=== PATIENT | female | born 1970 | race Caucasian/White ===

== ENCOUNTER 2016-06-24 07:30 | Outpatient (CLI) | payer MEDICAID | END 2016-06-24 07:31 | disposition EMS.NT | DX: Z03.89 Encounter for observation for other suspected diseases and conditions ruled out (principal); Y04.2XXA Assault by strike against or bumped into by another person, initial encounter ==

== ENCOUNTER 2017-03-09 03:14 | Emergency (ER) | payer MEDICAID ==
[2017-03-09] MEDS ORDERED: ONDANSETRON 4 MG/2 ML VIAL IVP STA (03:26)
[2017-03-09] MEDS ORDERED: SODIUM CHLORIDE 0.9% 1,000 ML IV ONE (03:26)
[2017-03-09] MEDS ORDERED: LOPERAMIDE 2 MG CAPSULE PO STA (03:30)
--- NOTE | 2017-03-09 03:31 | ED Physician Documentation ---
PD HPI NVD - Stated complaint Stated Complaint: DIARRHEA - Chief complaint Chief Complaint: Abd Pain - History obtained from History obtained from: Patient, Friend - History of Present Illness Timing - onset: How many hours ago (4) Timing - details: Abrupt onset, Still present Associated symptoms: Abdominal pain. No: Fever Contributing factors: No: Sick contact, Bad food, Recent antibiotics Similar symptoms before: Work up / diagnostics, Treatment Recently seen: Not recently seen - Additonal information Additional information: Patient is a 46 year old female with no signficant past medical history who is presenting to the emergency department for four hours of vomiting and diarrhea. According to patient and friend patient has had projectile vomiting and deficated all over the hotel room. patient had symptoms like this once before a few year prior. Review of Systems Constitutional: reports: Fever. denies: Chills, Myalgias Eyes: reports: Reviewed and negative Ears: reports: Reviewed and negative Nose: denies: Congestion Throat: reports: Reviewed and negative Cardiac: reports: Reviewed and negative Respiratory: denies: Dyspnea, Cough GI: reports: Abdominal Pain, Nausea, Vomiting, Diarrhea : reports: Reviewed and negative Skin: denies: Rash, Lesions Neurologic: reports: Generalized weakness. 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 - Present Medications Home Medications: Ambulatory Orders Medication Instructions Recorded Confirmed Loperamide HCl [Anti-Diarrheal] 2 mg PO Q8HR #14 tablet 03/09/17 Ondansetron Odt [Zofran] 4 mg TL Q6H PRN #20 tablet 03/09/17 - Allergies Allergies/Adverse Reactions: Allergies Allergy/AdvReac Type Severity Reaction Status Date / Time No Known Drug Allergies Allergy Verified 03/09/17 03:20 - Social History Does the pt smoke?: No Smoking Status: Never smoker Does the pt drink ETOH?: No Does the pt have substance abuse?: No - Immunizations Immunizations are current?: Yes - POLST Patient has POLST: No PD ED PE NORMAL - HEENT HEENT: Atraumatic - Neck Neck: Supple, no meningeal sign - Cardiac Cardiac: RRR, No murmur - Respiratory Respiratory: No respiratory distress - Abdomen Abdomen: Soft, Non distended - Derm Derm: Normal color, Warm and dry - Extremities Extremities: No deformity, Normal ROM s pain, No calf tenderness / cord - Neuro Neuro: Alert and oriented X 3, No motor deficit, No sensory deficit, Normal speech Eye Opening: To Voice Motor: Obeys Commands Verbal: Oriented GCS Score: 14 PD ED PE EXPANDED - General General: Disheveled, poorly kept - HEENT HEENT: Atraumatic, Dry mucous membranes. No: Head injury - Abdomen Abdomen: Tender to palpation, Generalized/diffuse. No: Rebound, Guarding Results - Vitals Vitals: Vital Signs - 24 hr 03/09/17 03:17 Temperature 36.5 C Heart Rate 93 Respiratory 16 Rate Blood Pressure 106/70 O2 Saturation 95 Oxygen O2 Source Room air - Labs Labs: Laboratory Tests 03/09/17 03/09/17 03/09/17 03:35 03:35 03:49 WBC 13.6 H RBC 4.71 Hgb 11.6 L Hct 35.7 L MCV 75.7 L MCH 24.6 L MCHC 32.5 RDW 15.3 H Plt Count 345 MPV 8.4 Neut # 11.3 H Lymph # 1.2 L [place] # 0.8 Eos # 0.2 Baso # 0.0 Absolute Nucleated RBC 0.00 Nucleated RBC % 0.0 Sodium 135 Potassium 3.6 Chloride 104 Carbon Dioxide 24 Anion Gap 7.0 BUN 11 Creatinine 0.6 Estimated GFR (MDRD) 108 Glucose 127 H Calcium 8.4 L Total Bilirubin 0.3 AST 32 ALT 43 Alkaline Phosphatase 132 H Total Protein 7.5 Albumin 3.5 Globulin 4.0 Albumin/Globulin Ratio 0.9 L Lipase 37 Ethyl Alcohol < 5.0 Influenza A (Rapid) Negative Influenza B (Rapid) Negative Influenza Types A,B Ag - PD MEDICAL DECISION MAKING - ED course Complexity details: reviewed old records, reviewed results, re-evaluated patient , considered differential, d/w patient ED course: Patient was seen and examined at bedside. IV access was gained and labs were drawn. patient was treated with iv fluids, zofran and loperamide. When patient 's labs came back there were no major abnormalities. patient had no episodes of emesis or diarrhea while in the emergency department. patient required no further inpatient work up and was stable for discharge with outpatient follow up. Departure - Departure Disposition: 01 Home, Self Care Clinical Impression: Gastroenteritis Condition: Good Instructions: ED Gastroenteritis Non Infec Follow-Up: Gravatt,Hector H, MD [Primary Care Provider] - Within 3 Days Prescriptions: Loperamide HCl [Anti-Diarrheal] 2 mg PO Q8HR #14 tablet Ondansetron Odt [Zofran] 4 mg TL Q6H PRN #20 tablet PRN Reason: Nausea / Vomiting Comments: Your diagnostics today were within normal limits. It is difficult to say exactly what caused your symptoms but they should improve over the next couple of days. You should take zofran for nausea and loperamide for the diarrhea. You should try to stay well hydrated with gatorade and electrolyte solutions. You should follow up with your doctor if your symptoms persist. You may return to the emergency department at any time for new, worsening or uncontrollable symptoms.
[2017-03-09 03:40] LABS: BASOPHILS % (AUTO) 0.4 %; EOSINOPHILS # (AUTO) 0.2 10^3/uL (0.0-0.7); EOSINOPHILS % (AUTO) 1.5 %; HGB - HEMOGLOBIN 11.6 g/dL (12.0-16.0); LYMPHOCYTES # (AUTO) 1.2 10^3/uL (1.5-3.5); MEAN CORPUSCULAR HEMOGLOBIN 24.6 pg (27.0-31.0); MEAN CORPUSCULAR HGB CONC 32.5 g/dL (32.0-36.0); MEAN CORPUSCULAR VOLUME 75.7 fL (81.0-99.0); MEAN PLATELET VOLUME 8.4 fL (7.9-10.8); MONOCYTES # (AUTO) 0.8 10^3/uL (0.0-1.0); MONOCYTES % (AUTO) 6.2 %; NEUTROPHILS # (AUTO) 11.3 10^3/uL (1.5-6.6); NEUTROPHILS % (AUTO) 82.9 %; PLT - PLATELET COUNT 345 10^3/uL (130-450); RED BLOOD COUNT 4.71 10^6/uL (4.20-5.40); RED CELL DISTRIBUTION WIDTH 15.3 % (12.0-15.0); WHITE BLOOD COUNT 13.6 x10^3/uL (4.8-10.8)
[2017-03-09 03:54] LABS: ALBUMIN 3.5 g/dL (3.2-5.5); ALBUMIN/GLOBULIN RATIO 0.9 (1.0-2.2); ALKALINE PHOSPHATASE 132 IU/L (42-121); ALT ALANINE AMINOTRANSFERASE 43 IU/L (10-60); AST ASPARTATE AMINOTRANSFERASE 32 IU/L (10-42); BILIRUBIN,TOTAL 0.3 mg/dL (0.2-1.0); BUN - BLOOD UREA NITROGEN 11 mg/dL (6-20); CALCIUM 8.4 mg/dL (8.5-10.3); CARBON DIOXIDE - CO2 24 mmol/L (21-32); CHLORIDE 104 mmol/L (101-111); CREATININE 0.6 mg/dL (0.4-1.0); GFR - MDRD 108 (>89); GLUCOSE 127 mg/dL (70-100); LIPASE 37 U/L (22-51); SODIUM 135 mmol/L (135-145); TOTAL PROTEIN 7.5 g/dL (6.7-8.2)
[2017-03-09 05:10] VITALS: BP 118/70
== END 2017-03-09 05:30 | disposition home or self-care (01) ==
LOC: ED 03:14
DX: K52.9 Noninfective gastroenteritis and colitis, unspecified (principal)
CPT/HCPCS: 36415; 80053; 80320; 83690; 85025; 87275; 87276; 96361; 96374; 99283; A9270

== ENCOUNTER 2017-04-08 23:36 | Emergency (ER) | payer MEDICAID ==
[2017-04-08 23:46] VITALS: BP 126/86
[2017-04-08] MEDS ORDERED: ACETAMINOPHEN 500 MG TABLET PO STA (23:46)
[2017-04-08] MEDS ORDERED: IBUPROFEN 600 MG TABLET PO STA (23:46)
--- NOTE | 2017-04-08 23:56 | ED Physician Documentation ---
PD HPI HEENT - Stated complaint Stated Complaint: TOOTHACHE - Chief complaint Chief Complaint: Heent - History obtained from History obtained from: Patient - History of Present Illness Timing - onset: Yesterday Timing - details: Gradual onset, Still present Location: Tooth Improves: Nothing Associated symptoms: No: Fever, Congestion Similar symptoms before: No diagnosis Recently seen: Not recently seen - Additional information Additional information: Patient is a 46 year old female with no significant past medical history who is presenting to the emergency department for tooth pain. Patient has poor dentition and states that for the last couple of days she has had worsening pain in the left upper molars. 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 - Present Medications Home Medications: Ambulatory Orders Medication Instructions Recorded Confirmed Loperamide HCl [Anti-Diarrheal] 2 mg PO Q8HR #14 tablet 03/09/17 Ondansetron Odt [Zofran] 4 mg TL Q6H PRN #20 tablet 03/09/17 Chlorhexidine Gluconate 15 ml MM Q6HR #1 mouthwash 04/08/17 - Allergies Allergies/Adverse Reactions: Allergies Allergy/AdvReac Type Severity Reaction Status Date / Time No Known Drug Allergies Allergy Verified 04/08/17 23:46 - Social History Does the pt smoke?: No Smoking Status: Never smoker Does the pt drink ETOH?: No Does the pt have substance abuse?: Yes Substance Use and Type: Marijuana - Immunizations Immunizations are current?: Yes - POLST Patient has POLST: No PD ED PE NORMAL - Vitals Vital signs reviewed: Yes - General General: Alert and oriented X 3, No acute distress - HEENT HEENT: Atraumatic, PERRL, Moist mucous membranes, Pharynx benign - Neck Neck: Supple, no meningeal sign - Cardiac Cardiac: RRR - Respiratory Respiratory: No respiratory distress - Abdomen Abdomen: Soft - Derm Derm: Normal color, Warm and dry - Extremities Extremities: No deformity - Neuro Neuro: Alert and oriented X 3, No motor deficit, Normal speech - Psych Psych: Normal mood PD ED PE EXPANDED - HEENT HEENT: Dental decay, Dental TTP, Other (multiple cracked teeth). No: Dental abscess Results - Vitals Vitals: Vital Signs - 24 hr 04/08/17 23:44 Temperature 37.0 C Heart Rate 101 H Respiratory 18 Rate Blood Pressure 126/86 H O2 Saturation 100 Oxygen O2 Source Room air PD MEDICAL DECISION MAKING - ED course Complexity details: reviewed old records, reviewed results, re-evaluated patient , considered differential, d/w patient ED course: Patient was seen and examined at bedside. Patient had no current abscess or fluid collection but she did have multiple caries and cracked teeth. Patient was treated with motrin, tylenol and topical lidocaine. chlorhexidine mouth wash prescription was written and patient was stable for discharge with outpatient follow up. Departure - Departure Disposition: 01 Home, Self Care Clinical Impression: Pain due to dental caries, Toothache Condition: Good Instructions: ED Tooth Pain Follow-Up: Hector Roche MD [Primary Care Provider] - Prescriptions: Chlorhexidine Gluconate 15 ml MM Q6HR #1 mouthwash Comments: There is no acute abscess of fluid infection. You will be started on an oral antibiotic rinse. You can take motrin and tylenol as needed for pain. Ultimately you will need to follow up with your dentist to get your teeth pulled. You should return to the emergency department for abscess fevers or chills.
== END 2017-04-09 00:04 | disposition home or self-care (01) ==
LOC: ED 23:36
DX: K02.9 Dental caries, unspecified (principal); K08.89 Other specified disorders of teeth and supporting structures
CPT/HCPCS: 99283; A9270

== ENCOUNTER 2019-02-03 05:57 | Outpatient (CLI) | payer MEDICAID | END 2019-02-03 05:58 | disposition critical access hospital (66) | LOC: EMS 05:57 | PROVIDERS: ATTEND Surgery | DX: R11.2 Nausea with vomiting, unspecified (principal); R19.7 Diarrhea, unspecified | CPT/HCPCS: A0425; A0429 ==

== ENCOUNTER 2019-02-03 06:23 | Emergency (ER) | payer MEDICAID ==
[2019-02-03] MEDS ORDERED: ONDANSETRON 4 MG/2 ML VIAL IVP STA (07:17)
[2019-02-03] MEDS ORDERED: SODIUM CHLORIDE 0.9% 1,000 ML IV ONE (07:17)
[2019-02-03 07:23] LABS: BASOPHILS % (AUTO) 0.2 %; EOSINOPHILS # (AUTO) 0.3 10^3/uL (0.0-0.7); HGB - HEMOGLOBIN 11.1 g/dL (12.0-16.0); LYMPHOCYTES # (AUTO) 0.9 10^3/uL (1.5-3.5); LYMPHOCYTES % (AUTO) 7.5 %; MEAN CORPUSCULAR HEMOGLOBIN 20.7 pg (27.0-31.0); MEAN CORPUSCULAR VOLUME 71.3 fL (81.0-99.0); MEAN PLATELET VOLUME 10.1 fL (7.9-10.8); MONOCYTES # (AUTO) 1.3 10^3/uL (0.0-1.0); MONOCYTES % (AUTO) 10.3 %; NEUTROPHILS # (AUTO) 9.8 10^3/uL (1.5-6.6); NEUTROPHILS % (AUTO) 79.7 %; PLT - PLATELET COUNT 441 10^3/uL (130-450); RED BLOOD COUNT 5.37 10^6/uL (4.20-5.40); RED CELL DISTRIBUTION WIDTH 17.7 % (12.0-15.0); WHITE BLOOD COUNT 12.3 x10^3/uL (4.8-10.8)
--- NOTE | 2019-02-03 07:24 | ED Physician Documentation ---
History of Present Illness - Stated complaint Stated Complaint: N/V - Chief complaint Chief Complaint: Abd Pain - History obtained from History obtained from: Patient - History of Present Illness Timing: Last night Pain level max: 0 Pain level now: 0 - Additonal information Additional information: 48-year-old female with nausea, vomiting, diarrhea since last night. Nothing makes it better or worse. No fevers. No recent travel. No recent antibiotics. No sick contacts. States she had pizza last night. She has had this happen in the past and been diagnosed with gastroenteritis. Denies any alcohol use. Review of Systems Ten Systems: 10 systems reviewed and negative Constitutional: denies: Fever, Chills Nose: denies: Rhinorrhea / runny nose, Congestion Throat: denies: Sore throat Respiratory: denies: Cough GI: reports: Nausea, Vomiting, Diarrhea. 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 - Present Medications Home Medications: Ambulatory Orders Medication Instructions Recorded Confirmed Loperamide HCl [Anti-Diarrheal] 2 mg PO Q8HR #14 tablet 03/09/17 Ondansetron Odt [Zofran] 4 mg TL Q6H PRN #20 tablet 03/09/17 Chlorhexidine Gluconate 15 ml MM Q6HR #1 mouthwash 04/08/17 Ondansetron Odt [Zofran] 4 mg TL Q6H PRN #10 tablet 02/03/19 - Allergies Allergies/Adverse Reactions: Allergies Allergy/AdvReac Type Severity Reaction Status Date / Time No Known Drug Allergies Allergy Verified 02/03/19 06:31 - Social History Does the pt smoke?: No Smoking Status: Never smoker Does the pt drink ETOH?: No Does the pt have substance abuse?: Yes - Immunizations Immunizations are current?: Yes - POLST Patient has POLST: No PD ED PE NORMAL - Vitals Vital signs reviewed: Yes - General General: Alert and oriented X 3, No acute distress, Well developed/nourished - HEENT HEENT: Moist mucous membranes, Pharynx benign - Neck Neck: Supple, no meningeal sign - Cardiac Cardiac: RRR, Strong equal pulses - Respiratory Respiratory: No respiratory distress, Clear bilaterally - Abdomen Abdomen: Soft, Non tender, Non distended - Derm Derm: Warm and dry, No rash - Extremities Extremities: No edema - Neuro Neuro: Alert and oriented X 3 - Psych Psych: Normal mood, Normal affect Results - Vitals Vitals: Vital Signs - 24 hr 02/03/19 02/03/19 02/03/19 06:28 07:45 07:56 Temperature 36.7 C Heart Rate 85 89 83 Respiratory 17 14 18 Rate Blood Pressure 108/68 108/71 108/71 O2 Saturation 98 99 99 Oxygen O2 Source Room air - Labs Labs: Laboratory Tests 02/03/19 02/03/19 07:16 07:16 WBC 12.3 H RBC 5.37 Hgb 11.1 L Hct 38.3 MCV 71.3 L MCH 20.7 L MCHC 29.0 L RDW 17.7 H Plt Count 441 MPV 10.1 Neut # (Auto) 9.8 H Lymph # (Auto) 0.9 L [place] # (Auto) 1.3 H Eos # (Auto) 0.3 Baso # (Auto) 0.0 Absolute Nucleated RBC 0.00 Nucleated RBC % 0.0 Sodium 137 Potassium 4.1 Chloride 104 Carbon Dioxide 22 Anion Gap 11.0 BUN 14 Creatinine 0.7 Estimated GFR (MDRD) 89 Glucose 106 H Calcium 8.5 Total Bilirubin 0.4 AST 40 ALT 53 Alkaline Phosphatase 139 H Total Protein 8.1 Albumin 3.8 Globulin 4.3 H Albumin/Globulin Ratio 0.9 L Lipase 56 H PD MEDICAL DECISION MAKING - ED course Complexity details: reviewed old records, reviewed results, re-evaluated patient, considered differential, d/w patient ED course: Patient has what appears to be a viral gastroenteritis. She is well-appearing, nontoxic. Afebrile. Given IV fluids and Zofran. Tolerating p.o. without difficulty. We will continue supportive care and have her follow-up with her doctor. Patient counseled regarding signs and symptoms for which I believe and urgent re-evaluation would be necessary. Patient with good understanding of and agreement to plan and is comfortable going home at this time This document was made in part using voice recognition software. While efforts are made to proofread this document, sound alike and grammatical errors may occur. Departure - Departure Disposition: 01 Home, Self Care Clinical Impression: Gastroenteritis Condition: Good Instructions: ED Gastroenteritis Viral Follow-Up: Your,doctor in 1 week [Other] Prescriptions: Ondansetron Odt [Zofran] 4 mg TL Q6H PRN #10 tablet PRN Reason: Nausea / Vomiting Comments: Go home and rest. Return if you worsen. Drink plenty of fluids. This should improve over the next 24 to 48 hours.
[2019-02-03 07:36] LABS: ALBUMIN 3.8 g/dL (3.2-5.5); ALBUMIN/GLOBULIN RATIO 0.9 (1.0-2.2); BILIRUBIN,TOTAL 0.4 mg/dL (0.2-1.0); CALCIUM 8.5 mg/dL (8.5-10.3); CREATININE 0.7 mg/dL (0.4-1.0); TOTAL PROTEIN 8.1 g/dL (6.7-8.2)
[2019-02-03 08:41] VITALS: BP 105/70
== END 2019-02-03 08:50 | disposition home or self-care (01) ==
LOC: EDUNIT# → ED 06:23
DX: K52.9 Noninfective gastroenteritis and colitis, unspecified (principal)
CPT/HCPCS: 36415; 80053; 83690; 85025; 99283; 99284

== ENCOUNTER 2021-07-01 02:11 | Emergency (ER) | payer MEDICAID ==
[2021-07-01 02:22] VITALS: BP 134/65
[2021-07-01] MEDS ORDERED: diphenhydrAMINE 25 MG CAPSULE PO STA (02:33)
--- NOTE | 2021-07-01 02:37 | ED Physician Documentation ---
History of Present Illness - Stated complaint Stated Complaint: KRISHNA Alexander LEG - Chief complaint Chief Complaint: Heent - Additonal information Additional information: Patient is a 50-year-old female who noticed an irritation to her left leg a pproximately 1 hour ago. She felt itching around the ankle area. She noticed redness. She is unsure of anything that would be irritating her skin. She denies new soaps, detergents/lotions, Environmental exposures. She denies previous history of similar rashes. It is itchy. She has not used any medications. She has not noticed any abnormal drainage. She denies irritation elsewhere. She denies chest pain or difficulty breathing. 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 - Present Medications Home Medications: Ambulatory Orders Medication Instructions Recorded Confirmed Hydrocortisone 1% Cream 1 applic TOP BID PRN 7 Days #28 gm 07/01/21 [Hydrocortisone] - Allergies Allergies/Adverse Reactions: Allergies Allergy/AdvReac Type Severity Reaction Status Date / Time No Known Drug Allergies Allergy Verified 07/01/21 02:22 - Social History Does the pt smoke?: No Smoking Status: Never smoker Does the pt drink ETOH?: No Does the pt have substance abuse?: Yes - Immunizations Immunizations are current?: Yes - POLST Patient has POLST: No PD ED PE NORMAL - General General: Alert and oriented X 3, No acute distress, Well developed/nourished - HEENT HEENT: Atraumatic, Moist mucous membranes - Respiratory Respiratory: No respiratory distress - Derm Derm: Warm and dry, Other (Patch of erythema to inner left ankle with no desquamation, no vesicles, no warmth, no lymphangitic spread) - Extremities Extremities: No edema - Neuro Neuro: Normal speech - Psych Psych: Normal mood PD ED PE EXPANDED - Derm SKin visual: 1 - rash Results - Vitals Vitals: Vital Signs - 24 hr 07/01/21 02:17 Temperature 36.3 C L Heart Rate 88 Respiratory 16 Rate Blood Pressure 134/65 H O2 Saturation 99 Oxygen O2 Source Room air PD MEDICAL DECISION MAKING - ED course Complexity details: d/w patient ED course: 50-year-old female with rash to left leg that is itching. Does not appear to be infected.Suspect allergic or irritant in nature. No signs of shingles Or blistering.We will try conservative treatments with hydrocortisone cream and p.o. Benadryl as needed for itching. Patient is aware of return precautions. Departure - Departure Disposition: 01 Home, Self Care Clinical Impression: Dermatitis Condition: Stable Instructions: ED Dermatitis Non Specific Rash Prescriptions: Hydrocortisone 1% Cream [Hydrocortisone] 1 applic TOP BID PRN 7 Days #28 gm PRN Reason: Itching Comments: You have been evaluated for a rash to your left leg. At this time it does not appear to be an infection. It appears to be an allergic reaction or irritation.You can use Benadryl for itching. I would also recommend using A steroid cream to see if it helps calm the reaction. I have sent a prescription for hydrocortisone to the [facility] in [place]. Please avoid tight or constrictive clothing to the area. If you develop worsening redness, abnormal drainage, blisters or vesicles or have any other concerns about the rash please return to the emergency department for another evaluation. Discharge Date/Time: 07/01/21 02:54
[2021-07-01] MEDS ORDERED: HYDROCORTISONE 1% CREAM 28 GM TUBE TOP SCH (03:00)
== END 2021-07-01 02:54 | disposition home or self-care (01) ==
LOC: ED 02:11
DX: L30.9 Dermatitis, unspecified (principal)
CPT/HCPCS: 99282; A9270

== ENCOUNTER 2022-07-19 15:15 | Emergency (ER) | payer MEDICAID ==
--- NOTE | 2022-07-19 16:23 | ED Physician Documentation ---
PD HPI BACK PAIN - Stated complaint Stated Complaint: FALL/BACK PX - Chief complaint Chief Complaint: Trauma Ch/Bk - History obtained from History obtained from: Patient - Additional information Additional information: The patient comes to the emergency department chief complaint of left low back and pelvic pain after a fall while on a ladder 3 days ago. She states she was helping a friend and was on a ladder that was pitched at a fairly broad angle to about a total of a 6 foot height. She states the ladder began to slide down and she caught her right foot in the rungs. As the ladder lurched, she struck the the lateral aspect of her left lumbar area. The patient states that she was little sore in the area but was able to get up and walk around afterward. She states she is mostly felt fine since but feels little more pain reaching into her pelvic area that has gradually come up since yesterday afternoon. She states the pain is not sharp but just a dull ache. Most of her pain is located over the area of a large bruise on her left lumbar area on the lateral aspect, which is where she struck herself. No other injuries or complaints. She did not hit her head or lose consciousness. No spinal pain or extremity pain. 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 - Present Medications Home Medications: Ambulatory Orders Medication Instructions Recorded Confirmed Hydrocortisone 1% Cream 1 applic TOP BID PRN 7 Days #28 gm 07/01/21 [Hydrocortisone] - Allergies Allergies/Adverse Reactions: Allergies Allergy/AdvReac Type Severity Reaction Status Date / Time No Known Drug Allergies Allergy Verified 07/19/22 15:41 - Social History Does the pt smoke?: No Smoking Status: Never smoker Does the pt drink ETOH?: No Does the pt have substance abuse?: Yes - Immunizations Immunizations are current?: Yes - POLST Patient has POLST: No PD ED PE NORMAL - Vitals Vital signs reviewed: Yes - General General: Alert and oriented X 3, No acute distress, Well developed/nourished - HEENT HEENT: Atraumatic, PERRL, EOMI, Moist mucous membranes - Neck Neck: Supple, no meningeal sign, No bony TTP - Cardiac Cardiac: RRR, No murmur, Strong equal pulses - Respiratory Respiratory: No respiratory distress, Clear bilaterally - Abdomen Abdomen: Soft, Non tender, Non distended - Back Back: No spinal TTP - Derm Derm: Warm and dry, Other (Approximately 12 cm contusion without firmness or fluctuance just adjacent to the left iliac crest and inferiorly. ) - Extremities Extremities: No deformity, Other (No bony tenderness of the pelvis or left hip. Patient ambulates without difficulty. 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 Additionally, she did not fall the full 6 feet but rather, lurched against the latter and sustained a bruise that way. I do not believe at this point that she has any significant internal injury, as she has been stable for 3 days and has developed aches and pains in the left pelvis more than anything. She has been ambulatory for 3 days since the fall and has a benign abdominal exam. We have discussed care of the bruise and using ibuprofen and Tylenol for management of the discomfort at home. The patient is not on anticoagulation. We have discussed the usual indications for return. Departure - Departure Disposition: 01 Home, Self Care Clinical Impression: Contusion of back Qualifiers: Encounter type: initial encounter Laterality: left Qualified Code(s): S20.222A - Contusion of left back wall of thorax, initial encounter Condition: Stable Instructions: ED Contusion Back Comments: At this point in time, it has been 3 days since her fall. Additionally, the height of your fall makes it less likely that you have sustained serious injury. Furthermore, while you have a large bruise on the side of your left lower back, you do not have any tenderness over the abdomen or over the kidneys to indicate likelihood of internal organ injury. Lastly, given the amount of time that has elapsed, it is unlikely that you have a serious injury to any of your internal organs, as you would have had much more severe symptoms by now. At this point in time, you may take ibuprofen and Tylenol to help with any discomfort you have. You may also apply ice and heat packs to help with the discomfort of the bruise. The bruise will resolve on its own over the next couple of weeks. Please follow-up with your primary doctor as needed.
[2022-07-19 16:38] VITALS: BP 105/70
== END 2022-07-19 16:38 | disposition home or self-care (01) ==
LOC: ED 15:15
DX: S20.222A Contusion of left back wall of thorax, initial encounter (principal); W17.89XA Other fall from one level to another, initial encounter; W22.8XXA Striking against or struck by other objects, initial encounter; Y93.89 Activity, other specified; Y92.89 Other specified places as the place of occurrence of the external cause
CPT/HCPCS: 99281; 99283